=== PATIENT | female | born 1965 | race Caucasian/White ===

== ENCOUNTER 2017-06-18 00:56 | Emergency (ER) | payer BC, OTHER ==
[~2017-06-18] VITALS: Ht 157.5 cm; Wt 79.1 kg
[~2017-06-18 00:56] MED LIST: B-121000 MCG PO; COZAAR 25MG25 MG/TAB PO; EPA/GLA1 SGL PO; FERROUS SU325 MG/TAB PO; FISH OIL 1000MG1 CAP PO; FOLIC ACID 40400 MCG PO; IBUPROFEN800 MG PO; LEVOTHYROXIN0.075 MG PO; LISINOPRIL20 MG PO; OYSTER CALCIUM500 M1 PO; PERCOCET 5/321 UDTAB PO; PERCOCET 500 MG1 TAB PO; PRILOSEC 20MG20 MG PO; PROBIOTIC-MAJOR PO; SINGULAIR 110 MG/TAB PO; SINGULAIR10 MG PO; SKELAXIN800 MG PO; SYNTHROID0.112 MG/T PO; TYLENOL 500MG500 MG PO; VITAMIN B-12100 MCG PO; VITAMIN B121000 MC2 SL; VITAMIN C500 MG PO; VITAMIN D 400400 IU PO; ZYRTEC10 M1 PO; ZYRTEC5 MG PO
[2017-06-18 00:59] VITALS: TEMP 97.7
[2017-06-18] MEDS ORDERED: ATARAX 25MG25 MG/TAB PO (01:25)
[2017-06-18] MEDS ORDERED: PREDNISONE20 MG PO (01:25)
[2017-06-18 01:36] VITALS: BP 191/99; PULSE 88
[2017-06-19] MEDS ORDERED: ADRENACLICK IM (15:42)
== END 2017-06-18 01:36 | disposition home or self-care (01) ==
LOC: COL.ER 00:56
DX: L50.9 Urticaria, unspecified (principal)
CPT/HCPCS: J7512

== ENCOUNTER 2017-06-19 14:21 | Emergency (ER) | payer BC, OTHER ==
[~2017-06-19] VITALS: Ht 157.5 cm; Wt 79.1 kg
[~2017-06-19 14:21] MED LIST changes: +ATARAX 25MG25 MG/TAB PO; +PREDNISONE20 MG PO
[2017-06-19 14:24] VITALS: TEMP 97.5
[2017-06-19] MEDS ORDERED: ADRENACLICK IM (15:42)
[2017-06-19 16:04] VITALS: BP 147/100; PULSE 88
== END 2017-06-19 16:10 | disposition home or self-care (01) ==
LOC: COL.ER 14:21
DX: L50.9 Urticaria, unspecified (principal); I10 Essential (primary) hypertension
CPT/HCPCS: J0171; J1200; J2930; J7512

== ENCOUNTER 2019-06-25 22:41 | Emergency (ER) | payer BC, OTHER ==
[~2019-06-25] VITALS: Ht 157.5 cm; Wt 70.9 kg
[~2019-06-25 22:41] MED LIST changes: +ADRENACLICK IM
[2019-06-25 22:50] VITALS: BP 157/74; TEMP 97.7
[2019-06-25 23:36] VITALS: PULSE 74
== END 2019-06-25 23:36 | disposition home or self-care (01) ==
LOC: COL.ER 22:41
DX: S61.012A Laceration without foreign body of left thumb without damage to nail, initial encounter (principal); W26.0XXA Contact with knife, initial encounter; Y92.009 Unspecified place in unspecified non-institutional (private) residence as the place of occurrence of the external cause

== ENCOUNTER 2019-08-22 07:05 | Day surgery (SDC) | payer BC, OTHER ==
[~2019-08-22] VITALS: Ht 157.5 cm; Wt 72.2 kg
[2019-08-22] VITALS (7 sets, daily range): BP systolic 111–126; BP diastolic 75–91; PULSE 55–76; TEMP 97.6–98.4
[2019-08-22] MEDS ORDERED: OYSTER SHELL C500 MG PO (08:17)
[2019-08-22] MEDS ORDERED: VITAMIN D32000 I1 PO (08:18)
[2019-08-22] MEDS ORDERED: AMARYL 2MG T2 MG/TAB PO (08:22)
[2019-08-22] MEDS ORDERED: NORVASC 10MG10 MG PO (08:22)
[2019-08-22] MEDS ORDERED: GLUCOPHAGE XR500 M1 PO (08:23)
[2019-08-22] MEDS ORDERED: ZOCOR5 MG PO (08:24)
[2019-08-22] MEDS ORDERED: MASON NATURAL1000 MG PO (08:27)
--- NOTE | 2019-08-22 10:34 | NUR ---
PT RETURNED FROM ENDO PROCEDURE SUITE PER CART. PT ALERT, SLEEPY. EASILY AROUSES, WITH PERIODS OF SLEEPINESS. VSS, LUNGS CLEAR, HRR, BOWEL SOUNDS PRESENT. WILL CONT TO MONITOR.
--- NOTE | 2019-08-22 10:56 | NUR ---
PT ALERT, SLEEPY. REQUESTED BLACK COFFEE AND CRACKERS. AT BEDSIDE. DENIES PAIN, NAUSEA OR DISCOMFORT. WILL CONT TO MONITOR.
--- NOTE | 2019-08-22 11:05 | NUR ---
PT TOLERATING FOOD AND FLUIDS WELL. MORE AWAKE, ALERT AND ORIENTATED. DENIES PAIN, NAUSEA OR DISCOMFORT AT THIS TIME.
--- NOTE | 2019-08-22 11:09 | NUR ---
PT O2 SATS UP FROM 89% TO 91% ON ROOM AIR. PT DENIES SHORTNESS OF BREATH, OTHER VITALS STABLE. AT BEDSIDE
--- NOTE | 2019-08-22 11:14 | NUR ---
1000: PT AWAKE, ALERT AND ORIENTATED. O2 SATS WITHIN NORMAL LIMITS. VSS, AFEBRILE. TOLERATING FOOD AND FLUIDS. IV DC'D TO RIGHT AC WITHOUT PROBLEMS. DISCHARGE INSTRUCTIONS GIVEN, QUESTIONS ANSWERED AND PT WITH BOTH VOICE UNDERSTANDING OF INSTRUCTIONS. PT DC'D PER WC OUT OF FACILTIY, WITH BELONGINGS INTO FAMILY VEHICLE.
== END 2019-08-22 10:10 | disposition home or self-care (01) ==
LOC: SDCO 07:05
DX: Z12.11 Encounter for screening for malignant neoplasm of colon (principal); K63.5 Polyp of colon; K21.9 Gastro-esophageal reflux disease without esophagitis; K44.9 Diaphragmatic hernia without obstruction or gangrene; E11.9 Type 2 diabetes mellitus without complications; J45.909 Unspecified asthma, uncomplicated; Z86.010 Personal history of colon polyps; Z80.0 Family history of malignant neoplasm of digestive organs; Z88.1 Allergy status to other antibiotic agents; Z88.6 Allergy status to analgesic agent; Z83.79 Family history of other diseases of the digestive system
CPT/HCPCS: J2250; J3010; J7030

== ENCOUNTER 2020-08-30 14:48 | Emergency (ER) | payer BC, OTHER ==
[~2020-08-30] VITALS: Ht 157.5 cm; Wt 72.7 kg
[~2020-08-30 14:48] MED LIST changes: +AMARYL 2MG T2 MG/TAB PO; +GLUCOPHAGE XR500 M1 PO; +MASON NATURAL1000 MG PO; +NORVASC 10MG10 MG PO; +OYSTER SHELL C500 MG PO; +VITAMIN D32000 I1 PO; +ZOCOR5 MG PO
[2020-08-30 14:54] VITALS: TEMP 98.1
[2020-08-30 15:50] LABS: BASO % 0.6 % (0.0-2.0); EOS # 0.1 (0.0-0.7); GRAN # 3.5 (1.4-6.5); GRAN % 50.6 % (42.2-75.2); HEMATOCRIT 41.3 % (37.0-47.0); HEMOGLOBIN 13.2 g/dl (12.5-16.0); LYMPH # 2.7 (1.2-3.4); LYMPH % 38.9 % (20.0-51.0); MEAN CELL VOLUME 78 fl (80.0-100.0); MEAN CORPUSCULAR HEMOGLOBIN 25 pg (27.0-31.0); MEAN CORPUSCULAR HGB CONC 32 g/dl (33.0-37.0); MEAN PLATELET VOLUME 12.1 fl (7.4-10.4); MONO # 0.5 (0.1-0.6); MONO % 7.6 % (1.7-9.3); PLATELET COUNT 272 K/mm3 (130-400); RED BLOOD COUNT 5.32 M/mm3 (4.10-5.30); REDCELL DISTRIBUTION WIDTH-CV 14.5 % (11.5-14.5)
[2020-08-30 16:06] LABS: ALBUMIN 4.5 gm/dL (3.5-5.0); BILIRUBIN,TOTAL 0.5 mg/dL (0.0-1.0); C-REACTIVE PROTEIN 1.1 mg/dL (0.0-0.9); CALCIUM 9.7 mg/dL (8.4-10.2); CREATININE, serum 0.84 (0.52-1.25); POTASSIUM 3.9 mmol/L (3.4-5.0); TOTAL PROTEIN 7.9 gm/dL (6.4-8.2)
[2020-08-30 17:02] LABS: COLLECTION METHOD CLEAN CATCH
[2020-08-30 17:09] LABS: MUCOUS Present /lpf; PH 5 (5-8); SQUAMOUS EPITHELIAL 0-2 /hpf; URINE APPEARANCE Clear; URINE BACTERIA None Seen /hpf; URINE BILIRUBIN Negative (NEGATIVE); URINE BLOOD Negative (NEGATIVE); URINE COLOR Yellow; URINE GLUCOSE 3+ (NEGATIVE); URINE KETONE Negative (NEGATIVE); URINE LEUKOCYTE ESTERASE Negative (NEGATIVE); URINE NITRATE Negative (NEGATIVE); URINE PROTEIN(semi-quant) Negative (NEGATIVE); URINE RBC 0-2 /hpf; URINE UROBILINOGEN Negative (NEGATIVE)
[2020-08-30] MEDS ORDERED: FLEXERIL 1010 MG/TAB PO (17:21)
[2020-08-30] MEDS ORDERED: MEDROL 4MG DOSPA4 MG PO ×2 (17:22)
[2020-08-30] MEDS ORDERED: DECADRON 4MG TAB4 MG PO (17:32)
[2020-08-30 17:37] VITALS: BP 135/92; PULSE 76
== END 2020-08-30 17:37 | disposition home or self-care (01) ==
LOC: COL.ER 14:48
PROVIDERS: Emergency Medicine
DX: M54.5 Low back pain (principal); E11.9 Type 2 diabetes mellitus without complications; I10 Essential (primary) hypertension; Z88.2 Allergy status to sulfonamides; Z88.8 Allergy status to other drugs, medicaments and biological substances; Z79.84 Long term (current) use of oral hypoglycemic drugs
CPT/HCPCS: J2270; J2405; J7030; J8540

== ENCOUNTER → 2021-11-06 | Outpatient (CLI) | payer BC, OTHER ==
[~2021-11-06] MED LIST changes: +DECADRON 4MG TAB4 MG PO; +FLEXERIL 1010 MG/TAB PO; +MEDROL 4MG DOSPA4 MG PO
== END ==
LOC: COL.RAD 09:16
DX: K76.0 Fatty (change of) liver, not elsewhere classified (principal)

== ENCOUNTER → 2021-11-17 | Outpatient (CLI) | payer BC, OTHER | LOC: MC.RAD 14:21 | DX: Z12.31 Encounter for screening mammogram for malignant neoplasm of breast (principal) ==

== ENCOUNTER → 2023-01-06 | Outpatient (CLI) | payer BC, OTHER | LOC: COL.VAS 12:03 | DX: I35.1 Nonrheumatic aortic (valve) insufficiency (principal) ==

== ENCOUNTER → 2023-11-24 | Outpatient (CLI) | payer OTHER ==
[~2023-11-24] MED LIST changes: +ATARAX 10MG10 MG/TAB PO; +ATARAX 25MG25 MG/TAB; +GLUCOPHAGE500 MG/TAB PO; +LEVOXYL0.1 MG PO; +LEXAPRO 5MG5 MG PO; +MASON NATURAL2000 IU PO; +OSCAL 500 TAB500 MG PO; -OYSTER SHELL C500 MG PO; +VITAMIN B12 681 TAB PO; -VITAMIN D32000 I1 PO
== END ==
LOC: CANSCHCLI → MC.RAD 09-28 08:30
DX: Z12.31 Encounter for screening mammogram for malignant neoplasm of breast (principal)